=== PATIENT | male | born 1985 | race Caucasian/White ===

== ENCOUNTER 2019-09-03 19:37 | Emergency (ER) | payer SELFPAY ==
[~2019-09-03 19:37] MED LIST: CEPHALEXIN500 M1 PO; CLEOCIN HC150 MG/CAP PO; CLINDAMYCIN300 MG PO; CYCLOBENZAPRINE5 M1 PO; IBUPROFEN 200200 MG PO; IBUPROFEN200 M1 PO; LISINOPRIL/HCTZ1 TA1 PO; NORCO 325 MG-51 TAB PO; NORCO 325 MG-7.1 TAB PO; NORFLEX100 MG PO; ULTRAM50 MG PO
[2019-09-03] MEDS ORDERED: PROTONIX TR40 M1 PO (19:54)
[2019-09-03] MEDS ORDERED: ZESTRIL20 M1 PO (19:54)
[2019-09-03] MEDS ORDERED: ZESTORETIC 20-1 EACH PO (19:55)
[2019-09-03 20:35] LABS: EOS # 0.3 (0.04-0.40); HEMATOCRIT 40.5 % (42.0-52.0); LYMPH# 2.4 (1.50-4.00); MEAN CELL VOLUME 91 fl (78-100); MEAN CORPUSCULAR HEMOGLOBIN 29 pg (27-31); MEAN CORPUSCULAR HGB CONC 32 g/dL (33-37); MONO # 1.4 (0.20-0.80); NEU # 5.1 (1.40-6.50); PLATELET COUNT 232 K/mm3 (130-400); RED BLOOD COUNT 4.45 M/mm3 (4.20-5.60); RED CELL DISTRIBUTION WIDTH 15.1 % (11.5-14.5); WHITE BLOOD COUNT 9.2 K/mm3 (4.8-10.8)
[2019-09-03 20:44] LABS: POTASSIUM 3.6 mmol/L (3.5-5.1)
[2019-09-03 20:45] LABS: CALCIUM 9.4 mg/dL (8.3-10.5)
[2019-09-03 21:22] VITALS: BP 138/79
[2019-09-03] MEDS ORDERED: ZITHROMAX 250M250 MG PO (21:36)
[2019-09-03] MEDS ORDERED: ALBUTEROL1.25 MG/3 IH (21:37)
[2019-09-03] MEDS ORDERED: REUSABLE NEBUL1 EACH MC (21:38)
== END 2019-09-03 21:40 | disposition home or self-care (01) ==
LOC: ED 19:37
PROVIDERS: Nurse Practitioner Family
DX: J41.1 Mucopurulent chronic bronchitis (principal); J18.0 Bronchopneumonia, unspecified organism; I10 Essential (primary) hypertension; F17.210 Nicotine dependence, cigarettes, uncomplicated

== ENCOUNTER 2019-12-20 21:27 | Emergency (ER) | payer SELFPAY ==
[~2019-12-20 21:27] MED LIST changes: +ALBUTEROL1.25 MG/3 IH; +PROTONIX TR40 M1 PO; +REUSABLE NEBUL1 EACH MC; +ZESTORETIC 20-1 EACH PO; +ZESTRIL20 M1 PO; +ZITHROMAX 250M250 MG PO
[2019-12-20] MEDS ORDERED: CYCLOBENZAPRINE10 M1 PO (22:35)
[2019-12-20 22:54] VITALS: BP 147/97
== END 2019-12-20 22:55 | disposition home or self-care (01) ==
LOC: ED 21:27
DX: S39.012A Strain of muscle, fascia and tendon of lower back, initial encounter (principal); S29.019A Strain of muscle and tendon of unspecified wall of thorax, initial encounter; X58.XXXA Exposure to other specified factors, initial encounter
CPT/HCPCS: J1885; J2360